=== PATIENT | male | born 1990 | race Caucasian/White ===

== ENCOUNTER 2019-09-26 14:49 | Inpatient (IN) | payer OTHER ==
[~2019-09-26] VITALS: Ht 188 cm; Wt 86.2 kg
--- NOTE | ~2019-09-26 | HC ---
[facility] [place] [address] CONSULTATION Name: OCHOA GARCIA Room #: 450-P ADM IN M.R.#: [id number] Admission: 09/26/19 Attend Phys: Soo Jim MD Discharge: Date of : [birth year] Report #: [id number] THIS REPORT FOR: cc: FAM - Family physician unknown RENETTA - Family physician unknown Romeo Navarro MD ~ CC: [facility] unknown Soo Jim DATE OF SERVICE: 09/27/2019 HISTORY OF PRESENT ILLNESS: This is a 28-year-old male patient who is admitted with seizures. He gives a history that he started having seizure when he was 14 years old. He does not know why he started having seizures. He was being followed in [place], [place], but he has moved here now. His history is poor, but looks like he gets 1 or 2 seizures per month. He says usually they are grand mal seizure. He shakes and he bites his tongue, but he also has some petit mal seizures. He does not know anything which brings it on. He says he takes his medications on a regular basis, but he does not know what medications he takes. Record indicates he is on Keppra 1000 mg b.i.d. and he was given a dose of Dilantin. The history he provides to the Emergency Room physician is pretty different and he said he was not taking his Keppra. His drug screen is positive for cocaine. He does not know how cocaine came into his system because he does not take cocaine, but he does admit to using marijuana on a regular basis. He says he is on disability because of his seizures. REVIEW OF SYSTEMS: Indicate that this patient has a history of seizure. He says he has a history of depression. He used to take some medication, the name of which he does not know. He said he stopped taking that because it made him feel weird. He was born in [place] and he lives here. Record indicates that he also was dehydrated when he came in. A 14-point review of system was carried out, which is incomplete because he does not provide a good history. It does not look like he has all the history, which is positive. PAST MEDICAL HISTORY: Positive for seizure. FAMILY HISTORY: Unremarkable. SOCIAL HISTORY: He smokes marijuana as well as cigarettes on a regular basis. He says he does not drink any alcohol, but the history is unreliable. PHYSICAL EXAMINATION: His examinations indicate he is alert. He can follow simple commands. His speech looks intact, although somewhat different. He knows what month it is. His memory and fund of knowledge is difficult to tell because he does not cooperate all the time. His cranial nerve examination appears unremarkable. His strength, sensation, reflexes and tone is [facility] [address] [place] [address] CONSULTATION Name: OCHOA GARCIA Room #: 450-P [facility] IN M.R.#: [id number] Admission: 09/26/19 Attend Phys: Soo Jim MD Discharge: Date of : [birth year] Report #: [id number] symmetrical. I could not look at the patient's fundus. There is no meningeal sign. There is no carotid bruit. His pulses appear to be palpable. He has no edema, cyanosis or jaundice. There is no thyroid mass. There is no carotid bruit. Cardiac examination is unremarkable. No respiratory difficulty was noticed. Blood pressure is 115/52, pulse is 84, temperature is 98.5. He did have a CT scan of the head, which appear unremarkable. LABORATORY DATA: His lab indicates somewhat high white count at 13, it was even higher. His creatinine is 2. IMPRESSION: 1. History of seizures. 2. A possibility that some of them may be pseudoseizure need to be considered in this patient. 3. Cocaine abuse by drug screen, patient denies that. 4. Kidney problems. RECOMMENDATIONS: 1. We will get an MRI. 2. We will get an EEG. 3. We will continue Keppra for the time being. We may have to readjust his medication depending upon what the results show. All of it was discussed with the patient in detail and he wants to follow this plan and we will do that. By: [id number] Romeo Navarro MD /nt
--- NOTE | ~2019-09-26 | EEG ---
[facility] Hillary [place] [employer] [address] ELECTROENCEPHALOGRAM Name: OCHOA GARCIA Room #: 450-P ADM IN M.R.#: [id number] Admission: 09/26/19 Attend Phys: Soo Jim MD Discharge: Date of : [birth year] Report #: [id number] THIS REPORT FOR: //name// CC: FAM unknown Soo Jim DATE OF SERVICE: 09/28/2019 This patient is being evaluated for seizure. EEG is done to evaluate that further. EEG was done by placing the electrode by standard 10-20 system of electrode placement. Both referential and sequential montages were used for recording. Background activity is about 8 Hz and 30 microvolt. It is a symmetrical activity. Photic stimulation is unremarkable. The patient became drowsy and that is associated with bilateral slowing and vertex sharp waves. Throughout the record, no active epileptiform activity was noticed. IMPRESSION: This patient's EEG is within normal limits. No active epileptiform activity was noticed during this record. By: 1608 [id number] Romeo Navarro MD /nt
--- NOTE | ~2019-09-26 | EMS ---
[place] [address] EMS Patient Care Report Name: OCHOA GARCIA Room #: PRE M.R.#: [id number] Admission: Attend Phys: Discharge: Date of : [birth year] Report #: [id number] THIS REPORT FOR: //name// Report Transmitted: 09/26/2019 14:38 EMS Care Summary [place], [place]/[facility] Incident [id number] @ 09/26/2019 14:14 Incident Location [address] [place] [address] Patient OCHOA GARCIA Male, 28 Years 1990 Patient Address unknown Patient History Diabetes,Seizures, Patient Allergies No known allergies, Patient Medications Keppra, Chief Complaint seizure Disposition Transported No Lights/[place] Reason Convulsions/Seizure Transported To [facility] Narrative bystanders stated pt had x3 seizures last night 09/25/19. pt found supine in bed and alert. pt a&ox4 gcs 15 and did not present in apparent distress. pt stated he had x3 seizures last night. pt stated he does not want to be transported to the hospital by ambulance. bystanders repeatedly advocated for pt to consent to transport. pt eventually agreed to be transported to [facility]. pt [address] [address] EMS Patient Care Report Name: OCHOA GARCIA Room #: PRE Safia#: [id number] Admission: Attend Phys: Discharge: Date of : [birth year] Report #: [id number] has no complaints at this time. pt stated he has been compliant with his medications. pt walked to ambulance. pt was transferred onto ems cot and was secured in a semi fowlers position without incident. pt was loaded into ambulance. pt was transported non emergent. transport was uneventful and pt rested on ems cot. pt care was transferred to appropriate staff and ems goes back in service. pts backpack was left with pt. Initial Vitals @14:28P: 76,R: 20,BP: 134/86,Pain: 0/10,GCS: 15,Glucose: 112,SpO2: 98,Revised Trauma: 12, @14:40P: 76,R: 20,BP: 130/84,GCS: 15,SpO2: 100,Revised Trauma: 12, Assessments @14:19MENTAL:No Abnormalities,SKIN:No Abnormalities,HEENT:Head/Face: No Abnormalities,Eyes: No Abnormalities,Neck/Airway: No Abnormalities,LUNG SOUNDS:General: No Abnormalities,Left Upper: No Abnormalities,Right Upper: No Abnormalities,Left Lower: No Abnormalities,Right Lower: No Abnormalities,ABDOMEN:General: No Abnormalities,Left Upper: No Abnormalities,Right Upper: No Abnormalities,Left Lower: No Abnormalities,Right Lower: No Abnormalities,PELVIS//GI:No Abnormalities,EXTREMITIES:Left Arm: No Abnormalities,Right Arm: No Abnormalities,Left Leg: No Abnormalities,Right Leg: No Abnormalities,PULSE:NEURO:No Abnormalities,@14:33MENTAL:No Abnormalities,SKIN:No Abnormalities,HEENT:Head/Face: No Abnormalities,Eyes: No Abnormalities,Neck/Airway: No Abnormalities,LUNG SOUNDS:General: No Abnormalities,Left Upper: No Abnormalities,Right Upper: No Abnormalities,Left Lower: No Abnormalities,Right Lower: No Abnormalities,ABDOMEN:General: No Abnormalities,Left Upper: No Abnormalities,Right Upper: No Abnormalities,Left Lower: No Abnormalities,Right Lower: No Abnormalities,PELVIS//GI:No Abnormalities,EXTREMITIES:Left Arm: No Abnormalities,Right Arm: No Abnormalities,Left Leg: No Abnormalities,Right Leg: No Abnormalities,PULSE:NEURO:No Abnormalities, Impression Seizures Procedures @14:19ALS AssessmentResponse: UnchangedSucceeded Timeline 14:12,Call Received 14:12,Dispatch Notified 14:14,Dispatched 14:15,En Route 14:18,On Scene 14:19,At Patient 14:19,ALS Assessment,Response: UnchangedSucceeded, [facility] [address] [place] [address] EMS Patient Care Report Name: OCHOA GARCIA Room #: PRE ER M.R.#: [id number] Admission: Attend Phys: Discharge: Date of : [birth year] Report #: [id number] 14:28,BP: 134/86 M,PULSE: 76,RR: 20 R,SPO2: 98 Ox,ETCO2: ,B,PAIN: 0,GCS: 15, 14:31,Depart Scene 14:40,BP: 130/84 M,PULSE: 76,RR: 20 R,SPO2: 100 Ox,ETCO2: ,BG: ,PAIN: ,GCS: 15, 14:44,At Destination 14:54,Call Closed Disclaimer v1.1 Copyright 2020 [employer], [place] This EMS Care Summary contains data elements from the applicable legal record (which may be displayed differently). It is designed to provide pertinent information for the following purposes: continuity of care, clinical quality, and state data reporting. The complete legal record is available to ED staff and administrators of the receiving hospital in [employer]'s Patient Tracker. All data is provided "as is."
[2019-09-26 14:50] VITALS: BP 126/69
[2019-09-26 15:36] LABS: ABSOLUTE NEUTROPHILS 12.3 thou/uL (1.4-8.2); BASOPHILS 0.6 % (0.0-2.0); EOSINOPHILS 0.4 % (0.0-3.0); HEMATOCRIT 47.8 % (42.0-52.0); HEMOGLOBIN 16.3 gm/dL (14.0-18.0); LYMPHOCYTES 17.5 % (24.0-44.0); MCH 31.3 pg (26.0-34.0); MCHC 34.2 g/dL (28.0-37.0); MCV 91.6 fL (80.0-100.0); MONOCYTES 6.3 % (1.0-8.0); PLATELET COUNT 331 thou/uL (150-400); POLYS 75.2 % (36.0-66.0); RBC 5.22 mil/uL (4.50-6.00); RDW 14.5 % (10.5-14.5); WBC 16.4 thou/uL (4.0-11.0)
[2019-09-26 16:11] LABS: CALCIUM 9.4 mg/dL (8.5-10.1); CREATININE 1.5 mg/dL (0.7-1.3); POTASSIUM 3.6 mmol/L (3.5-5.1)
[2019-09-26 16:17] LABS: ALBUMIN 4.8 g/dL (3.4-5.0); TOTAL BILIRUBIN 0.3 mg/dL (<0.1-1.0); TOTAL PROTEIN 8.4 g/dL (6.4-8.2)
[2019-09-26 16:35] LABS: URINE BILIRUBIN NEGATIVE (Negative); URINE BLOOD TRACE (Negative); URINE CLARITY CLEAR; URINE COLOR YELLOW; URINE GLUCOSE-RANDOM* NEGATIVE (Negative); URINE KETONES NEGATIVE (Negative); URINE LEUKOCYTES-REFLEX NEGATIVE (Negative); URINE NITRITE-REFLEX NEGATIVE (Negative); URINE PROTEIN (DIPSTICK) NEGATIVE (Negative); URINE UROBILINOGEN 0.2 E.U./dl (0.2-1.0)
[2019-09-26 16:41] LABS: AMP/METHAMP Negative (Negative); BARBITURATES Negative (Negative); BENZODIAZEPINES Negative (Negative); COCAINE POSITIVE (Negative); METHADONE Negative (Negative); OPIATES Negative (Negative); PCP Negative (Negative)
[2019-09-26 19:30] VITALS: BP 115/49
[2019-09-26] MEDS ORDERED: LAMOTRIGINE250 MG PO (20:02)
[2019-09-26] MEDS ORDERED: REMERON15 M2 PO (20:02)
[2019-09-26] MEDS ORDERED: TOPAMAX100 MG PO (20:03)
[2019-09-26 20:12] VITALS: BP 108/38
[2019-09-26 20:21] LABS: CHOLESTEROL 234 mg/dL (<200); HDL CHOLESTEROL 40 mg/dL (>40); LDL CHOLESTEROL 162 mg/dL (<100); TC:HDL 5.9 Ratio (Not establshd); TRIGLYCERIDE 160 mg/dL (<150); TROPONIN-I <0.06 ng/mL (<0.06); VLDL 32 mg/dL (<40)
[2019-09-26 20:22] LABS: SERUM ASSESSMENT Clear
[2019-09-26 20:31] LABS: TSH 2.432 uIU/mL (0.358-3.740)
[2019-09-26 21:10] LABS: FOLIC ACID 19.1 ng/mL (8.6-58.9)
[2019-09-26 23:58] VITALS: BP 120/59
--- NOTE | 2019-09-27 02:01 | NUR ---
ADMITTED FROM ER UNDER 'S CARE. ADMIT WITH SEIZURE. SEIZURE PRECAUTION IN PLACE. TELEMETRY INITIATED. PT VERY SLEEPY AND DOES NOT SHOW ANY INTEREST IN COMPLETING ADMISSION ASSESSMENTS OR PARTICIPATING IN NURSING CARE. AROUND MN, 99.9F NOTED. CALLED INSTRUMENT MECHANIC PAIN MANAGEMENT SPECIALIST AND OBTAINED ORDER FOR TYLENOL AND ADMIN COMPLETED. VSS. NO S/S ACUTE DISTRESS NOTED OR REPORTED AT THIS TIME. WILL CONT TO MONITOR FOR ANY CHANGES IN CONDITION. HOME MEDS STORED IN PHARMACY.
[2019-09-27 05:41] VITALS: BP 109/54
[2019-09-27 06:10] LABS: ABSOLUTE NEUTROPHILS 7.7 thou/uL (1.4-8.2); BASOPHILS 0.5 % (0.0-2.0); EOSINOPHILS 0.1 % (0.0-3.0); LYMPHOCYTES 28.9 % (24.0-44.0); MCH 31.4 pg (26.0-34.0); MCHC 34.2 g/dL (28.0-37.0); MCV 91.9 fL (80.0-100.0); MONOCYTES 11.2 % (1.0-8.0); PLATELET COUNT 266 thou/uL (150-400); POLYS 59.3 % (36.0-66.0); RBC 4.57 mil/uL (4.50-6.00); RDW 14.4 % (10.5-14.5)
[2019-09-27 06:13] LABS: HEMOGLOBIN 14.3 gm/dL (14.0-18.0)
[2019-09-27 06:32] LABS: ALBUMIN 3.9 g/dL (3.4-5.0); CALCIUM 8.7 mg/dL (8.5-10.1); MAGNESIUM 2.3 mg/dL (1.8-2.4); PHOSPHORUS 4.7 mg/dL (2.5-4.9); POTASSIUM 3.7 mmol/L (3.5-5.1); TOTAL BILIRUBIN 0.5 mg/dL (<0.1-1.0); TOTAL PROTEIN 7.1 g/dL (6.4-8.2)
[2019-09-27 08:00] VITALS: BP 115/52
--- NOTE | 2019-09-27 09:32 | NUR ---
ASSUMED CARE AT 0700. PT ALERT AND ORIENTED, SLEEPING. NO COMPLAINTS. VSSA/RA. NSR ON TELE. TOLERATING DIET. PIV INFUSING WITHOUT ISSUES. NO SEIZURES NOTED, SZ PRECAUTIONS IN PLACE. PT STEADY ON FEET, INSTRUCTED TO CALL IF NEEDS TO GET UP. CALL LIGHT IN REACH. WILL CONTIUE TO MONITOR
[2019-09-27 15:00] VITALS: BP 113/51
[2019-09-27 17:16] LABS: TSH 0.697 uIU/mL (0.358-3.740)
[2019-09-27 19:13] VITALS: BP 114/73
[2019-09-28 05:56] LABS: ABSOLUTE NEUTROPHILS 4.4 thou/uL (1.4-8.2); BASOPHILS 0.5 % (0.0-2.0); HEMATOCRIT 38.8 % (42.0-52.0); HEMOGLOBIN 13.3 gm/dL (14.0-18.0); LYMPHOCYTES 45.4 % (24.0-44.0); MCH 31.4 pg (26.0-34.0); MCHC 34.2 g/dL (28.0-37.0); MONOCYTES 9.2 % (1.0-8.0); PLATELET COUNT 224 thou/uL (150-400); POLYS 43.9 % (36.0-66.0); RBC 4.22 mil/uL (4.50-6.00); RDW 14.2 % (10.5-14.5); WBC 10.1 thou/uL (4.0-11.0)
[2019-09-28 06:11] LABS: ALBUMIN 3.4 g/dL (3.4-5.0); CALCIUM 8.3 mg/dL (8.5-10.1); CREATININE 1.6 mg/dL (0.7-1.3); MAGNESIUM 1.9 mg/dL (1.8-2.4); PHOSPHORUS 3.7 mg/dL (2.5-4.9); POTASSIUM 3.5 mmol/L (3.5-5.1); TOTAL BILIRUBIN 0.3 mg/dL (<0.1-1.0); TOTAL PROTEIN 6.3 g/dL (6.4-8.2)
--- NOTE | 2019-09-28 06:18 | NUR ---
patient aox4 makes needs known. patient denied pain or discomfort. no seizures this shift. patient is calm and cooperative with care and meds. patient in bed asleep at this time breathing regular and unlaboured.
[2019-09-28 08:15] VITALS: BP 110/64
--- NOTE | 2019-09-28 11:43 | NUR ---
ASSUMED CARE AT 0700. PT ALERT AND ORIENTED. NO COMPLIANTS, STATES FEELS BETTER. VSSA/RA NSR/ANI ON TELE. NO SEIZURE ACTIVITY NOTED. TOLERATING DIET. PIV INFUSING WITHOUT ISSUES. MRI DONE. AWAITING FURTHER TESTS PENDING DC TODAY. PT IS UAL. CALL LIGHT IN REACH IF NEEDS ARISE.
[2019-09-28 15:08] VITALS: BP 104/55
--- NOTE | 2019-09-28 16:01 | NUR ---
PT ADMITTED RELATED TO RECURRENT SEIZURES. CM REVIEWED CHART AND SPOKE WITH CARE TEAM. CM CALLED AND SPOKE WITH PT AT BEDSIDE THIS DAY. PT APPEARED TO BE A&O X4. CM ROLE INTRODUCED. PT INDICATED HE MOVED HERE 3 MONTHS AGO FROM [facility] AND THAT HE THINKS HE HAS [place] MEDICAID AND IS ON DISABILITY. HE INDICATED HIS NEUROLOGIST IN [place] IS STILL CALLING [place] IN FOR HIM FOR HIS MEDS AND HE FILLS THEM HERE LOCALLY. HE IS LOOKING FOR A NEUROLOGIST LOCALLY TOO. CM TO PROVIDE [facility] INFO. PT INDICATED HE LIVES IN A [place]UP[place] WITH HIS BROTHER AND SISTER IN LAW. HE HAD BEEN INDEPENDENT WITH GAIT AND ADLS AND PLANS TO RETURN HOME ONCE MEDICALLY STABLE. CM TO FOLLOW INDICATED WITH DC PLANNING.
[2019-09-28] MEDS ORDERED: LEVETIRACE100 MG/1 M PO ×2 (16:35→16:55)
[2019-09-28 16:47] VITALS: BP 110/64
== END 2019-09-28 18:08 | disposition home or self-care (01) | DRG 101 ==
LOC: ER 14:49 → EROBS 18:28 → 4W 20:10
PROVIDERS: Nurse Practitioner Family; Psychiatry & Neurology Neuromuscular Medicine; ADMIT Internal Medicine
DX: G40.909 Epilepsy, unspecified, not intractable, without status epilepticus (principal); N17.9 Acute kidney failure, unspecified; F12.90 Cannabis use, unspecified, uncomplicated; E86.0 Dehydration; F14.10 Cocaine abuse, uncomplicated; F17.210 Nicotine dependence, cigarettes, uncomplicated; Z91.14 Patient's other noncompliance with medication regimen; Z79.899 Other long term (current) drug therapy
CPT/HCPCS: 10045

== ENCOUNTER 2020-01-02 08:26 | Emergency (ER) | payer OTHER ==
[~2020-01-02] VITALS: Ht 188 cm; Wt 86.2 kg
[~2020-01-02 08:26] MED LIST: LAMOTRIGINE250 MG PO; LEVETIRACE100 MG/1 M PO; REMERON15 M2 PO; TOPAMAX100 MG PO
[2020-01-02 09:03] LABS: ABSOLUTE NEUTROPHILS 5.1 thou/uL (1.4-8.2); BASOPHILS 0.7 % (0.0-2.0); EOSINOPHILS 1.4 % (0.0-3.0); HEMATOCRIT 46.9 % (42.0-52.0); HEMOGLOBIN 15.5 gm/dL (14.0-18.0); LYMPHOCYTES 28.5 % (24.0-44.0); MCH 30.2 pg (26.0-34.0); MCV 91.3 fL (80.0-100.0); PLATELET COUNT 255 thou/uL (150-400); POLYS 62.4 % (36.0-66.0); RBC 5.14 mil/uL (4.50-6.00); RDW 13.9 % (10.5-14.5); WBC 8.1 thou/uL (4.0-11.0)
[2020-01-02 09:08] LABS: AMP/METHAMP Negative (Negative); BARBITURATES Negative (Negative); BENZODIAZEPINES Negative (Negative); COCAINE Negative (Negative); METHADONE Negative (Negative); OPIATES POSITIVE (Negative); PCP Negative (Negative)
[2020-01-02 09:09] LABS: ANION GAP 14 mmol/L (7-16); BUN 13 mg/dL (7-18); CHLORIDE 105 mmol/L (98-107); CO2 23 mmol/L (21-32); CREATININE 1.4 mg/dL (0.7-1.3); GLUCOSE 78 mg/dL (74-106); SODIUM 142 mmol/L (136-145)
[2020-01-02 09:10] LABS: POTASSIUM 5.3 mmol/L (3.5-5.1)
[2020-01-02 09:16] LABS: SGOT 28 U/L (15-37); SGPT 58 U/L (30-65); TOTAL BILIRUBIN 0.3 mg/dL (0.2-1.0); TOTAL PROTEIN 7.4 g/dL (6.4-8.2)
[2020-01-02 09:39] VITALS: BP 108/60
== END 2020-01-02 09:41 | disposition home or self-care (01) ==
LOC: ER 08:26
PROVIDERS: Emergency Medicine
DX: R56.9 Unspecified convulsions (principal); F17.210 Nicotine dependence, cigarettes, uncomplicated

== ENCOUNTER 2020-02-15 08:36 | Emergency (ER) | payer OTHER ==
[~2020-02-15] VITALS: Ht 188 cm; Wt 86.2 kg
[2020-02-15 09:19] LABS: URINE BILIRUBIN NEGATIVE (Negative); URINE BLOOD 3+ (Negative); URINE CLARITY CLEAR; URINE COLOR YELLOW; URINE GLUCOSE-RANDOM* NEGATIVE (Negative); URINE KETONES NEGATIVE (Negative); URINE LEUKOCYTES-REFLEX NEGATIVE (Negative); URINE NITRITE-REFLEX NEGATIVE (Negative); URINE PROTEIN (DIPSTICK) 1+ (Negative); URINE SPECIFIC GRAVITY >= 1.030 (1.005-1.035); URINE UROBILINOGEN 0.2 E.U./dl (0.2-1.0)
[2020-02-15 09:36] LABS: SQUAMOUS 0-3 Few /LPF (0-3)
[2020-02-15 09:37] LABS: BACTERIA-REFLEX None Seen /HPF (None Seen); CASTS None Seen /LPF (None Seen); CRYSTALS None Seen /LPF (None Seen); MUCUS 0-3 Light strn/LPF (None Seen); URINE RBC 0-2 Rare /HPF (0-2); URINE WBC-REFLEX 0-5 Rare /HPF (0-5)
[2020-02-15 09:53] LABS: ABSOLUTE NEUTROPHILS 14.7 thou/uL (1.4-8.2); BASOPHILS 0.3 % (0.0-2.0); EOSINOPHILS 0.3 % (0.0-3.0); HEMATOCRIT 47.7 % (42.0-52.0); HEMOGLOBIN 15.9 gm/dL (14.0-18.0); LYMPHOCYTES 10.2 % (24.0-44.0); MCH 29.9 pg (26.0-34.0); MCHC 33.4 g/dL (28.0-37.0); MCV 89.4 fL (80.0-100.0); MONOCYTES 8.2 % (1.0-8.0); PLATELET COUNT 292 thou/uL (150-400); RBC 5.34 mil/uL (4.50-6.00); RDW 14.4 % (10.5-14.5); WBC 18.2 thou/uL (4.0-11.0)
[2020-02-15 10:07] LABS: CALCIUM 9.9 mg/dL (8.5-10.1); CREATININE 1.1 mg/dL (0.7-1.3)
[2020-02-15 10:10] LABS: ALBUMIN 4.6 g/dL (3.4-5.0); TOTAL BILIRUBIN 0.4 mg/dL (0.2-1.0); TOTAL PROTEIN 8.6 g/dL (6.4-8.2)
--- NOTE | 2020-02-15 10:23 | EKG ---
[facility] [place] [address] ELECTROCARDIOGRAM REPORT Name: OCHOA GARCIA Room #: [facility]#: [id number] Admission: 02/15/20 Attend Phys: Discharge: Date of : [birth year] Report #: [id number] THIS REPORT FOR: cc: RENETTA - [place] family physician/PCP [place] - [place] family physician/PCP Andrea Steele MD [facility] ~ THIS REPORT FOR: //name// [facility] ED Test Date: 2020-02-15 Test Time: 08:58:24 Pat Name: OCHOA GARCIA Department: Room: Gender: Digital Sales Manager: deana : 1990 Requested By: Iggy Banegas Order Number: [id number] MD: Andrea Steele Measurements Intervals [place] Rate: 81 P: 59 [place]: 138 QRS: 47 QRSD: 85 T: 29 QT: 376 QTc: 437 Interpretive Statements Sinus rhythm J Point elev, probable normal early repol pattern No previous ECG available for comparison Electronically Signed On 02-15-2020 10:23:27 CDT by Andrea Steele [email or web address] <ELECTRONICALLY SIGNED> By: Andrea Steele MD, FACC 02/15/20 1023 7 Andrea Steele MD, FAC /EPI
[2020-02-15] MEDS ORDERED: TOPAMAX100 MG PO (14:04)
[2020-02-15] MEDS ORDERED: KEPPRA1000 MG PO (14:04)
[2020-02-15 14:17] VITALS: BP 125/77
[2020-02-15 16:09] LABS: AMP/METHAMP Negative (Negative); BARBITURATES Negative (Negative); BENZODIAZEPINES Negative (Negative); COCAINE POSITIVE (Negative); METHADONE Negative (Negative); OPIATES Negative (Negative); PCP Negative (Negative)
== END 2020-02-15 14:18 | disposition home or self-care (01) ==
LOC: ER 08:36
PROVIDERS: Emergency Medicine
DX: R56.9 Unspecified convulsions (principal); R06.02 Shortness of breath; M54.9 Dorsalgia, unspecified; Z79.899 Other long term (current) drug therapy; F17.210 Nicotine dependence, cigarettes, uncomplicated